=== PATIENT | male | born 1945 | race Caucasian/White ===

== ENCOUNTER 2019-01-14 21:59 | Inpatient (IN) ==
[2019-01-14] MEDS ORDERED: SODIUM CHLORIDE 0.9% 1000ML 1,000 ML IV SCH (22:15)
--- NOTE | 2019-01-14 22:25 | XRay Report ---
XR chest 1V portable CLINICAL HISTORY: 73 years-old Male presenting with ams. TECHNIQUE: Portable upright AP view of the chest was obtained. COMPARISON: None. FINDINGS: Atherosclerosis of the aortic arch. Cardiac silhouette enlarged. No focal opacity. No large effusion or pneumothorax. Degenerative changes of the thoracic spine. Upper abdomen normal. IMPRESSION: 1. Cardiomegaly. No other convincing evidence of acute cardiopulmonary disease. Electronically signed by: Jabier Ricketts M.D. 01/14/2019 10:23 PM
[2019-01-14 22:42] LABS: Appearance Urine Clear (Clear); Bacteria Urine Automated Negative (Negative); Bilirubin Urine Negative (Negative); Blood Urine 2+ (Negative); Color Urine Yellow; Glucose Urine UA 3+ (Negative); Ketones Urine Negative (Negative); Leukocyte Esterase Urine Negative (Negative); Nitrite Urine Negative (Negative); Specific Gravity Urine 1.023 (1.000-1.030); Urobilinogen Urine Negative (Negative); pH Urine 7.5 (4.5-7.5)
[2019-01-14 22:52] LABS: Protein Urine 3+ (Negative); Sulfosalicylic Acid Urine Positive (Negative)
[2019-01-14 22:52] LABS: iSTAT Creatinine 1.2 mg/dl (0.6-1.3); iSTAT Ionized Calcium 1.1 mmol/l (1.12-1.32)
[2019-01-14 23:07] LABS: Basophils # (auto) 0.02 K/uL (0-0.2); Basophils % (auto) 0.3 %; Eosinophils # (auto) 0.01 K/uL (0-0.5); Eosinophils % (auto) 0.1 %; Hematocrit (blood only) 47.2 % (42-52); Hemoglobin 16.4 g/dL (14.0-18.0); Immature Granulocytes # (auto) 0.02 K/uL (0.00-0.02); Immature Granulocytes % (auto) 0.3 %; Lymphocytes # (auto) 0.85 K/uL (1.2-3.4); Lymphocytes % (auto) 10.8 %; Mean Corpuscular Hemoglobin 28.4 pg (25-34); Mean Corpuscular Hgb Conc 34.7 g/dL (32-36); Mean Corpuscular Volume 81.7 fL (80-100); Mean Platelet Volume 11.2 fL (7.4-10.4); Monocytes # (auto) 0.36 K/uL (0.11-0.59); Monocytes % (auto) 4.6 %; Neutrophils # (auto) 6.62 K/uL (1.4-6.5); Neutrophils % (auto) 83.9 %; Platelet Count 227 K/uL (130-400); RDW Coefficient of Variation 13.8 % (11.5-14.5); RDW Standard Deviation 40.9 fL (36.4-46.3); Red Blood Count 5.78 M/uL (4.7-6.1); White Blood Count 7.88 K/uL (4.8-10.8)
[2019-01-14 23:10] LABS: Base Excess VBG 3.3 mEq/L; Oxygen Saturation VBG 76.9 %; pH VBG 7.41 (7.36-7.41)
[2019-01-14 23:45] LABS: Albumin Level 3.1 gm/dl (3.4-5.0); BUN Creatinine Ratio 16.4 (10-20); Bilirubin,Total 0.6 mg/dl (0.2-1); Calcium 9.3 mg/dl (8.5-10.1); Creatinine Clr Calc Pharmacy 50.4 ml/min; Total Protein 7.9 gm/dl (6.4-8.2); Troponin I 0.062 ng/ml (0-0.045)
[2019-01-14] MEDS ORDERED: NITROGLYCERIN/D5W 100MCG/ML 250 ML IV SCH (23:45)
[2019-01-14 23:51] LABS: Potassium 4.5 mmol/L (3.5-5.1)
[2019-01-14 23:57] LABS: Aspartate Aminotransferase 15 U/L (15-37); Beta-Hydroxybutyrate 5.18 mg/dl (0.2-2.81); Bilirubin Direct < 0.1 mg/dl (0-0.2); Magnesium 2.1 mg/dl (1.8-2.4)
[2019-01-14] MEDS ORDERED: FUROSEMIDE 40 MG/4 ML VIAL IV STA (23:57)
[2019-01-15 00:42] LABS: INR 0.9 (0.9-1.1); Partial Thromboplastin Ratio 0.8; Partial Thromboplastin Time 22.2 Seconds (21.0-31.0); Prothrombin Time 9.7 Seconds (9.0-12.0)
[2019-01-15] MEDS ORDERED: NovoLIN-R INSULIN PER UNIT CHARGE IV STA (00:55)
--- NOTE | 2019-01-15 00:55 | Emergency Department Note ---
Entered by Shmuel Fierro acting as a scribe for Vincent Galarza History of Present Illness General Chief complaint: Hyperglycemia Stated complaint: HYPERGLYCEMIA, CONFUSION, AMS Time Seen by Provider: 01/14/19 22:08 Source: RN notes reviewed Mode of arrival: ambulatory Limitations: altered mental status History of Present Illness The patient is a 73 y/o male who presents to the ED w/ CC of hyperglycemia. Nursing staff states the patient was [facility] un[facility]. They report police were called and the patient was brought the ED. Nursing notes the patient was syncopal and incontinent of his urine. They state he has a history of diabetes and in noncompliant. Nursing reports the patient's BSG was 572 upon arrival. The patient notes he does not remember anything and does not currently have pain. HPI limited secondary to the patient's altered mental status. Home Medications Home Medications Medication Instructions Recorded Confirmed Type No Known Home Medications 01/15/19 01/15/19 History Allergies Allergy/AdvReac Type Severity Reaction Status Date / Time No Known Allergies Allergy Unverified 01/15/19 00:41 Past Med/Surg History Medical History Medical history unknown Surgical History Surgical history unknown Family History Other Family history unobtainable Social History Preferred Language: Trinidadian Feels Safe at Home: Yes Smoking Status: Unknown if ever smoked Review of Systems Unobtainable due to cognitive status (AMS) Physical Exam Vital Signs Vital Signs - 24 hr 01/14/19 22:10 01/14/19 22:55 01/14/19 23:18 Temperature 37.3 C Temperature Source Oral Sepsis Recent Fever Within 48 Hours No Sepsis New/Unexplained Change in Mental Status Yes Sepsis Action Taken by Nursing No Action Required Pulse Rate 93 H 93 H 92 H Pulse Rate from SpO2 Sensor 93 H 92 H Pulse Rhythm Regular Pulse Strength Normal Respiratory Rate 24 17 17 Respiratory Effort / Characteristics Non-Labored Spontaneous Respiratory Depth Normal Respiratory Pattern Regular Blood Pressure 248/131 H 216/119 H 226/113 H Blood Pressure Mean 170 151 150 Blood Pressure Position Lying Pulse Oximetry 91 95 96 Oxygen Delivery Method Room Air Oxygen Flow Rate 01/14/19 23:30 01/14/19 23:43 01/14/19 23:45 Temperature Temperature Source Sepsis Recent Fever Within 48 Hours Sepsis New/Unexplained Change in Mental Status Sepsis Action Taken by Nursing Pulse Rate 91 H 89 88 Pulse Rate from SpO2 Sensor 90 89 88 Pulse Rhythm Pulse Strength Respiratory Rate 17 18 16 Respiratory Effort / Characteristics Respiratory Depth Respiratory Pattern Blood Pressure 215/116 H 219/107 H Blood Pressure Mean 149 144 Blood Pressure Position Pulse Oximetry 97 97 97 Oxygen Delivery Method Oxygen Flow Rate 2 2 2 01/14/19 23:57 01/15/19 00:00 01/15/19 00:15 Temperature Temperature Source Sepsis Recent Fever Within 48 Hours Sepsis New/Unexplained Change in Mental Status Sepsis Action Taken by Nursing Pulse Rate 90 91 H Pulse Rate from SpO2 Sensor 90 90 Pulse Rhythm Pulse Strength Respiratory Rate 17 16 Respiratory Effort / Characteristics Respiratory Depth Respiratory Pattern Blood Pressure 239/120 H Blood Pressure Mean 159 Blood Pressure Position Pulse Oximetry 89 L 97 94 Oxygen Delivery Method Room Air Oxygen Flow Rate 2 2 01/15/19 00:30 01/15/19 00:37 Temperature Temperature Source Sepsis Recent Fever Within 48 Hours Sepsis New/Unexplained Change in Mental Status Sepsis Action Taken by Nursing Pulse Rate 90 88 Pulse Rate from SpO2 Sensor 90 88 Pulse Rhythm Pulse Strength Respiratory Rate 18 21 Respiratory Effort / Characteristics Respiratory Depth Respiratory Pattern Blood Pressure 215/107 H Blood Pressure Mean 143 Blood Pressure Position Pulse Oximetry 94 94 Oxygen Delivery Method Nasal Cannula Oxygen Flow Rate 2 GENERAL: He is oriented x1. He appears dirty and smells of urine. He does appear distressed. HENT: Exam performed. - Head: Normocephalic and atraumatic. - Right Ear: External ear normal. No mastoid tenderness. - Left Ear: External ear normal. No mastoid tenderness. - Mouth/Throat: Dry mucous membranes. EYES: Conjunctivae and EOM are normal. Pupils are equal, round, and reactive to light. Right eye exhibits no discharge. Left eye exhibits no discharge. No sc leral icterus. NECK: Supple. CV: Tachycardic rate, regular rhythm, normal heart sounds and intact distal pulses. There is 3+ pitting edema of the bilateral LE. Palpable radial pulses bue. PULM/CHEST: Effort normal. No respiratory distress. No stridor. He has no wheezes. He has no rales. Rhonchi bilaterally. - Chest Wall: He exhibits no tenderness. ABD: Soft. MUSC/SKEL: Normal range of motion. There is 3+ pitting edema of the bilateral LE. No tenderness or deformity. LYMPH: No cervical adenopathy. NEURO motor and sensation grossly intact. Alert and oriented x1. SKIN: Dirty soaked in urine. Course 220: Past medical records reviewed. The patient was evaluated in room B06. A complete history and physical exam was performed. 2358: The patient is hypertensive and hypoxic. The chest x-ray shows fluid overload with cardiomegaly. IV fluids were stopped at this time. The patient only received approximately 300 cc of fluid. His labs show a glucose of 589, troponin of 0.062, and a ProBNP of 2010. The patient does not have an osmolar or anion gap.The patient was placed on supplemental oxygen and a nitro drip. The patient will also be given Lasix for CHF. He will be admitted to the [facility] for further management and care. 0001: I discussed the patient's case with Dr. Jeffery, [facility]. He will evaluate the patient for further care and states to admit the patient to the ICU given that he is on nitroglycerin drip. 0102: Patient remains hypertensive, will increase nitro drip at this time. Administered Medications Sodium Chloride (Nss 1000ml) 1,000 mls @ 100 mls/hr IV .Q10H [facility] Stop: 02/13/19 22:14 Last Admin: 01/14/19 22:56 Dose: 100 mls/hr Documented by: [id number] Nitroglycerin/Dextrose (Nitroglycerin/D5w 100 Mcg/Ml) 250 mls @ 6 mls/hr IV .Q24H [facility]; Protocol Stop: 02/13/19 23:44 Last Admin: 01/15/19 00:29 Dose: 10 mcg/min, 6 mls/hr Documented by: [id number] Cosigned by: [id number] Discontinued Medications Furosemide (Lasix) 40 mg IV NOW STA Stop: 01/14/19 23:58 Last Admin: 01/15/19 00:32 Dose: Not Given Documented by: [id number] Medical Decision Making Medical Records Attestation: I reviewed the patient's medical records. Home Medications Current Medication List: was personally reviewed by ma Laboratory Data Attestation: I reviewed the patient's lab results. Result diagrams: 01/14/19 22:28 01/14/19 22:55 Lab Results 01/14/19 01/14/19 01/14/19 Range/Units 22:28 22:28 22:28 WBC 7.88 (4.8-10.8) K/uL RBC 5.78 (4.7-6.1) M/uL Hgb 16.4 (14.0-18.0) g/dL POC Hgb (14.0-18.0) g/dl Hct 47.2 (42-52) % POC Hct (42-52) % MCV 81.7 (80-100) fL MCH 28.4 (25-34) pg MCHC 34.7 (32-36) g/dL RDW Std Deviation 40.9 (36.4-46.3) fL RDW Coeff of Flash 13.8 (11.5-14.5) % Plt Count 227 (130-400) K/uL MPV 11.2 H (7.4-10.4) fL Immature Gran % (Auto) 0.3 % Neut % (Auto) 83.9 % Lymph % (Auto) 10.8 % [place] % (Auto) 4.6 % Eos % (Auto) 0.1 % Baso % (Auto) 0.3 % Immature Gran # (Auto) 0.02 (0.00-0.02) K/uL Neut # (Auto) 6.62 H (1.4-6.5) K/uL Lymph # (Auto) 0.85 L (1.2-3.4) K/uL [place] # (Auto) 0.36 (0.11-0.59) K/uL Eos # (Auto) 0.01 (0-0.5) K/uL Baso # (Auto) 0.02 (0-0.2) K/uL PT Cancelled INR Cancelled APTT Cancelled PTT Ratio Cancelled VBG pH (7.36-7.41) VBG pCO2 (38-50) mmHg VBG pO2 mmHg VBG HCO3 mmol/L VBG O2 Saturation % VBG Base Excess mEq/L Barometric Pressure mm/Hg POC Sodium (135-144) mEq/L Sodium 135 L (136-145) mmol/L POC Potassium (3.3-5.0) mEq/L Potassium (3.5-5.1) mmol/L POC Chloride (101-112) mEq/L Chloride 98 (98-107) mmol/L Carbon Dioxide 27 (21-32) mmol/L POC Total CO2 (24-31) mEq/l Anion Gap 10.0 (3-11) POC Anion Gap (16-25) mmol/L POC BUN (7-18) mg/dl BUN 26 H (7-18) mg/dl Creatinine 1.56 H (0.6-1.4) mg/dl POC Creatinine (0.6-1.3) mg/dl Est Cr Clr Drug Dosing 50.4 ml/min Est GFR ( Amer) 51.0 Est GFR (Non-Af Amer) 44.0 BUN/Creatinine Ratio 16.4 (10-20) Glucose 589 H* (70-99) mg/dl POC Glucose (other) (70-99) mg/dl Osmolality (280-300) mOsm/kg Lactate (0.4-2.0) mmol/L Calcium 9.3 (8.5-10.1) mg/dl POC Ioniz Calcium [place] (1.12-1.32) mmol/l Magnesium (1.8-2.4) mg/dl Total Bilirubin 0.6 (0.2-1) mg/dl Direct Bilirubin (0-0.2) mg/dl AST (15-37) U/L ALT 20 (12-78) U/L Alkaline Phosphatase 118 H (45-117) U/L Troponin I 0.062 H* (0-0.045) ng/ml NT-Pro-B Natriuret Pep 2010 H (0-900) pg/ml Total Protein 7.9 (6.4-8.2) gm/dl Albumin 3.1 L (3.4-5.0) gm/dl Lipase 281 (73-393) U/L Beta-Hydroxybutyric Acd (0.2-2.81) mg/dl Urine Color Urine Appearance (Clear) Urine pH (4.5-7.5) Ur Specific [place] (1.000-1.030) Urine Protein (Negative) Urine Glucose (UA) (Negative) Urine Ketones (Negative) Urine Blood (Negative) Urine Nitrite (Negative) Urine Bilirubin (Negative) Urine Urobilinogen (Negative) Ur Leukocyte Esterase (Negative) Urine WBC (Auto) (0-5) /hpf Urine RBC (Auto) (0-4) /hpf U Hyaline Cast (Auto) (0-5) /lpf U Epithel Cells (Auto) (0-5) /lpf Urine Bacteria (Auto) (Negative) Ethyl Alcohol mg/dL (0-3) mg/dl 01/14/19 01/14/19 01/14/19 Range/Units 22:31 22:34 22:37 WBC (4.8-10.8) K/uL RBC (4.7-6.1) M/uL Hgb (14.0-18.0) g/dL POC Hgb 17.0 (14.0-18.0) g/dl Hct (42-52) % POC Hct 50 (42-52) % MCV (80-100) fL MCH (25-34) pg MCHC (32-36) g/dL RDW Std Deviation (36.4-46.3) fL RDW Coeff of Flash (11.5-14.5) % Plt Count (130-400) K/uL MPV (7.4-10.4) fL Immature Gran % (Auto) % Neut % (Auto) % Lymph % (Auto) % [place] % (Auto) % Eos % (Auto) % Baso % (Auto) % Immature Gran # (Auto) (0.00-0.02) K/uL Neut # (Auto) (1.4-6.5) K/uL Lymph # (Auto) (1.2-3.4) K/uL [place] # (Auto) (0.11-0.59) K/uL Eos # (Auto) (0-0.5) K/uL Baso # (Auto) (0-0.2) K/uL PT INR APTT PTT Ratio VBG pH (7.36-7.41) VBG pCO2 (38-50) mmHg VBG pO2 mmHg VBG HCO3 mmol/L VBG O2 Saturation % VBG Base Excess mEq/L Barometric Pressure mm/Hg POC Sodium 132 L (135-144) mEq/L Sodium (136-145) mmol/L POC Potassium 6.0 H (3.3-5.0) mEq/L Potassium (3.5-5.1) mmol/L POC Chloride 98 L (101-112) mEq/L Chloride (98-107) mmol/L Carbon Dioxide (21-32) mmol/L POC Total CO2 28 (24-31) mEq/l Anion Gap (3-11) POC Anion Gap 13.0 L (16-25) mmol/L POC BUN 41 H (7-18) mg/dl BUN (7-18) mg/dl Creatinine (0.6-1.4) mg/dl POC Creatinine 1.2 (0.6-1.3) mg/dl Est Cr Clr Drug Dosing ml/min Est GFR ( Amer) Est GFR (Non-Af Amer) BUN/Creatinine Ratio (10-20) Glucose (70-99) mg/dl POC Glucose (other) 617 H* (70-99) mg/dl Osmolality 321 H (280-300) mOsm/kg Lactate (0.4-2.0) mmol/L Calcium (8.5-10.1) mg/dl POC Ioniz Calcium [place] 1.10 L (1.12-1.32) mmol/l Magnesium (1.8-2.4) mg/dl Total Bilirubin (0.2-1) mg/dl Direct Bilirubin (0-0.2) mg/dl AST (15-37) U/L ALT (12-78) U/L Alkaline Phosphatase (45-117) U/L Troponin I (0-0.045) ng/ml NT-Pro-B Natriuret Pep (0-900) pg/ml Total Protein (6.4-8.2) gm/dl Albumin (3.4-5.0) gm/dl Lipase (73-393) U/L Beta-Hydroxybutyric Acd (0.2-2.81) mg/dl Urine Color Yellow Urine Appearance Clear (Clear) Urine pH 7.5 (4.5-7.5) Ur Specific [place] 1.023 (1.000-1.030) Urine Protein 3+ H (Negative) Urine Glucose (UA) 3+ H (Negative) Urine Ketones Negative (Negative) Urine Blood 2+ H (Negative) Urine Nitrite Negative (Negative) Urine Bilirubin Negative (Negative) Urine Urobilinogen Negative (Negative) Ur Leukocyte Esterase Negative (Negative) Urine WBC (Auto) 1-5 (0-5) /hpf Urine RBC (Auto) 5-10 H (0-4) /hpf U Hyaline Cast (Auto) 1-5 (0-5) /lpf U Epithel Cells (Auto) 10-20 H (0-5) /lpf Urine Bacteria (Auto) Negative (Negative) Ethyl Alcohol mg/dL (0-3) mg/dl 01/14/19 01/14/19 01/14/19 Range/Units 22:55 22:55 22:55 WBC (4.8-10.8) K/uL RBC (4.7-6.1) M/uL Hgb (14.0-18.0) g/dL POC Hgb (14.0-18.0) g/dl Hct (42-52) % POC Hct (42-52) % MCV (80-100) fL MCH (25-34) pg MCHC (32-36) g/dL RDW Std Deviation (36.4-46.3) fL RDW Coeff of Flash (11.5-14.5) % Plt Count (130-400) K/uL MPV (7.4-10.4) fL Immature Gran % (Auto) % Neut % (Auto) % Lymph % (Auto) % [place] % (Auto) % Eos % (Auto) % Baso % (Auto) % Immature Gran # (Auto) (0.00-0.02) K/uL Neut # (Auto) (1.4-6.5) K/uL Lymph # (Auto) (1.2-3.4) K/uL [place] # (Auto) (0.11-0.59) K/uL Eos # (Auto) (0-0.5) K/uL Baso # (Auto) (0-0.2) K/uL PT INR APTT PTT Ratio VBG pH 7.41 (7.36-7.41) VBG pCO2 46 (38-50) mmHg VBG pO2 41 mmHg VBG HCO3 29 mmol/L VBG O2 Saturation 76.9 % VBG Base Excess 3.3 mEq/L Barometric Pressure 733.0 mm/Hg POC Sodium (135-144) mEq/L Sodium (136-145) mmol/L POC Potassium (3.3-5.0) mEq/L Potassium (3.5-5.1) mmol/L POC Chloride (101-112) mEq/L Chloride (98-107) mmol/L Carbon Dioxide (21-32) mmol/L POC Total CO2 (24-31) mEq/l Anion Gap (3-11) POC Anion Gap (16-25) mmol/L POC BUN (7-18) mg/dl BUN (7-18) mg/dl Creatinine (0.6-1.4) mg/dl POC Creatinine (0.6-1.3) mg/dl Est Cr Clr Drug Dosing ml/min Est GFR ( Amer) Est GFR (Non-Af Amer) BUN/Creatinine Ratio (10-20) Glucose (70-99) mg/dl POC Glucose (other) (70-99) mg/dl Osmolality (280-300) mOsm/kg Lactate 1.9 (0.4-2.0) mmol/L Calcium (8.5-10.1) mg/dl POC Ioniz Calcium [place] (1.12-1.32) mmol/l Magnesium (1.8-2.4) mg/dl Total Bilirubin (0.2-1) mg/dl Direct Bilirubin (0-0.2) mg/dl AST (15-37) U/L ALT (12-78) U/L Alkaline Phosphatase (45-117) U/L Troponin I (0-0.045) ng/ml NT-Pro-B Natriuret Pep (0-900) pg/ml Total Protein (6.4-8.2) gm/dl Albumin (3.4-5.0) gm/dl Lipase (73-393) U/L Beta-Hydroxybutyric Acd (0.2-2.81) mg/dl Urine Color Urine Appearance (Clear) Urine pH (4.5-7.5) Ur Specific [place] (1.000-1.030) Urine Protein (Negative) Urine Glucose (UA) (Negative) Urine Ketones (Negative) Urine Blood (Negative) Urine Nitrite (Negative) Urine Bilirubin (Negative) Urine Urobilinogen (Negative) Ur Leukocyte Esterase (Negative) Urine WBC (Auto) (0-5) /hpf Urine RBC (Auto) (0-4) /hpf U Hyaline Cast (Auto) (0-5) /lpf U Epithel Cells (Auto) (0-5) /lpf Urine Bacteria (Auto) (Negative) Ethyl Alcohol mg/dL < 3.0 (0-3) mg/dl 01/14/19 01/15/19 Range/Units 22:55 00:21 WBC (4.8-10.8) K/uL RBC (4.7-6.1) M/uL Hgb (14.0-18.0) g/dL POC Hgb (14.0-18.0) g/dl Hct (42-52) % POC Hct (42-52) % MCV (80-100) fL MCH (25-34) pg MCHC (32-36) g/dL RDW Std Deviation (36.4-46.3) fL RDW Coeff of Flash (11.5-14.5) % Plt Count (130-400) K/uL MPV (7.4-10.4) fL Immature Gran % (Auto) % Neut % (Auto) % Lymph % (Auto) % [place] % (Auto) % Eos % (Auto) % Baso % (Auto) % Immature Gran # (Auto) (0.00-0.02) K/uL Neut # (Auto) (1.4-6.5) K/uL Lymph # (Auto) (1.2-3.4) K/uL [place] # (Auto) (0.11-0.59) K/uL Eos # (Auto) (0-0.5) K/uL Baso # (Auto) (0-0.2) K/uL PT 9.7 INR 0.9 APTT 22.2 PTT Ratio 0.8 VBG pH (7.36-7.41) VBG pCO2 (38-50) mmHg VBG pO2 mmHg VBG HCO3 mmol/L VBG O2 Saturation % VBG Base Excess mEq/L Barometric Pressure mm/Hg POC Sodium (135-144) mEq/L Sodium (136-145) mmol/L POC Potassium (3.3-5.0) mEq/L Potassium 4.5 (3.5-5.1) mmol/L POC Chloride (101-112) mEq/L Chloride (98-107) mmol/L Carbon Dioxide (21-32) mmol/L POC Total CO2 (24-31) mEq/l Anion Gap (3-11) POC Anion Gap (16-25) mmol/L POC BUN (7-18) mg/dl BUN (7-18) mg/dl Creatinine (0.6-1.4) mg/dl POC Creatinine (0.6-1.3) mg/dl Est Cr Clr Drug Dosing ml/min Est GFR ( Amer) Est GFR (Non-Af Amer) BUN/Creatinine Ratio (10-20) Glucose (70-99) mg/dl POC Glucose (other) (70-99) mg/dl Osmolality (280-300) mOsm/kg Lactate (0.4-2.0) mmol/L Calcium (8.5-10.1) mg/dl POC Ioniz Calcium [place] (1.12-1.32) mmol/l Magnesium 2.1 (1.8-2.4) mg/dl Total Bilirubin (0.2-1) mg/dl Direct Bilirubin < 0.1 (0-0.2) mg/dl AST 15 (15-37) U/L ALT (12-78) U/L Alkaline Phosphatase (45-117) U/L Troponin I (0-0.045) ng/ml NT-Pro-B Natriuret Pep (0-900) pg/ml Total Protein (6.4-8.2) gm/dl Albumin (3.4-5.0) gm/dl Lipase (73-393) U/L Beta-Hydroxybutyric Acd 5.18 H (0.2-2.81) mg/dl Urine Color Urine Appearance (Clear) Urine pH (4.5-7.5) Ur Specific [place] (1.000-1.030) Urine Protein (Negative) Urine Glucose (UA) (Negative) Urine Ketones (Negative) Urine Blood (Negative) Urine Nitrite (Negative) Urine Bilirubin (Negative) Urine Urobilinogen (Negative) Ur Leukocyte Esterase (Negative) Urine WBC (Auto) (0-5) /hpf Urine RBC (Auto) (0-4) /hpf U Hyaline Cast (Auto) (0-5) /lpf U Epithel Cells (Auto) (0-5) /lpf Urine Bacteria (Auto) (Negative) Ethyl Alcohol mg/dL (0-3) mg/dl Imaging Data Radiologist's Impression: Radiology results as stated below per my review and the radiologist's interpretation: XR chest 1V portable CLINICAL HISTORY: 73 years-old Male presenting with ams. TECHNIQUE: Portable upright AP view of the chest was obtained. COMPARISON: None. FINDINGS: Atherosclerosis of the aortic arch. Cardiac silhouette enlarged. No focal opacity. No large effusion or pneumothorax. Degenerative changes of the thoracic spine. Upper abdomen normal. IMPRESSION: 1. Cardiomegaly. No other convincing evidence of acute cardiopulmonary disease. Electronically signed by: Jabier Ricketts M.D. 01/14/2019 10:23 PM Radiology results as stated below per my review and the [facility] radiologist's i nterpretation: CT HEAD: No ICH, mass effect or edema. No evidence of acute cortical stroke. Periventricular small vessel ischemic change. Visualized sinuses and mastoid air cells are clear. Radiologist: Mckay Prajapati M.D. Study ready at 23:20 and initial results transmitted at 23:49 ECG Data Attestation: I personally reviewed and interpreted this ECG as follows: Indication: altered mental status Rate (beats per minute): 108 Rhythm: sinus with SA Findings: + other (OR 230, QRS 108, QTc 514. Baseline artifact due to movement.) Blood Pressure Blood Pressure Findings: Elevated blood pressure Blood Pressure Disposition: Referred to patients primary care provider MDM Narrative 2208: Past medical records reviewed. The patient was evaluated in room B06. A complete history and physical exam was performed. 2358: The patient is hypertensive and hypoxic. The chest x-ray shows fluid overload with cardiomegaly. IV fluids were stopped at this time. The patient only received approximately 300 cc of fluid. His labs show a glucose of 589, troponin of 0.062, and a ProBNP of 2010. The patient does not have an osmolar or anion gap.The patient was placed on supplemental oxygen and a nitro drip. The patient will also be given Lasix for CHF. He will be admitted to the [facility] for further management and care. 0001: I discussed the patient's case with Dr. Jeffery, [facility]. He will evaluate the patient for further care and states to admit the patient to the ICU given that he is on nitroglycerin drip. 0102: Patient remains hypertensive, will increase nitro drip at this time. Impression & Plan Hypoxia, CHF exacerbation Critical Care Time Critical Care Time: Yes Total Critical Care Time: 70 I have personally spent 70 minutes of critical care time in the direct management of this patient. This includes bedside care, interpretation of diagnostic studies, and testing, discussion with consultants, patient, and family members, and other required patient management activities. This 70 minutes is in excess of all separately billable procedures. Discharge Plan Visit Data Chief Complaint: Hyperglycemia Stated Complaint: HYPERGLYCEMIA, CONFUSION, AMS ED Provider: Vincent Galarza Discharge Problem: Hypoxia, CHF exacerbation Patient Disposition: Being Evaluated by Hospitalist Forms Stand Alone Forms: My [facility] Prescriptions Prescriptions: No Action No Known Home Medications RF: 0 Referrals Referrals: PCP,NO [Primary Care Provider] - Discharge Problem: CHF exacerbation Qualifiers: Heart failure type: unspecified Qualified Code(s): I50.9 - Heart failure, unspecified The scribe's documentation has been prepared under my direction and personally reviewed by me in its entirety. I confirm that the note above accurately reflects all work, treatment, procedures, and medical decision making performed by me.
[2019-01-15] MEDS ORDERED: INSULIN GLARGINE SOLOSTAR 100 UNITS/ML 3 ML PEN SC SCH ×2 (01:00→09:00)
--- NOTE | 2019-01-15 02:03 | Critical Care Consultation ---
Date of Consultation January 15, 2019 Assessment & Plan (1) Admitted to intensive care unit: Reason Critically Ill: 73-year-old male with hypertensive emergency requiring antihypertensive drip with altered mentation as well as endorgan damage in the setting of elevated troponin and presumed MODESTO. Hyperglycemia. NEURO - * CAM ICU: NEGATIVE * AMS: * In the setting of negative CT without contrast and improving mentation with improvement in blood pressure, likely related to hypertensive enceph alopathy. * Will add urine tox screen. * No focal neurological deficits this time. CARDIAC/VASCULAR - * Hypertensive urgency: * Started on nitroglycerin drip in the emergency department with adequate results. * Plan to wean down as tolerated. * Switch to p.o. medications as soon as possible. * EKG: SR w/ poor quality EKG. No ST/T-wave changes noted. QTc 514ms. * Monitor on telemetry. RESPIRATORY - * Hypoxia: * No known h/o pulmonary disease. * Possibly s/s AMS w/ hypoventilation in the picture of GALINDO patient. * Supplemental O2 PRN. GI/NUTRITION - * NPO at this time. * Progress to AHA diet when tolerating. * Prophylaxis: No need at this time. RENAL/LYTES - * Presumed MODESTO: * Likely 2/2 HTN emergency. * Repeat labs w/ improvement of BP. * IVF: hold 2/2 profound HTN. - * Lee in place - Strict I&Os. ENDO - * Hyperglycemia: * Noncompliant w/ meds. * BSGs per unit protocol. ISS --> gtt per unit policy. HEME - * Stable H&H ID - * No c/o infectious contribution at this time. * Trend fever curve. LINES/IV ACCESS - * PIVs x2 * Lee DVT PROPHYLAXIS - * Heparin * SCDs I have personally spent 35 minutes of critical care time in the direct management of this patient. This is a life/limb threatening event. This includes time spent evaluating patient, direct bedside care, chart review, placing orders, interpretation of diagnostic studies, discussion with consultants, patient, and family members, as well as other required patient management activities. This time is exclusive of all separately billable procedures, and teaching time and separate from and in addition to any other critical care service time. Thank you for allowing us to participate in the care of this patient. Please refer to my attending physician's documentation for any further recommendations. (2) Hypertensive emergency: (3) Heart failure with preserved ejection fraction: (4) Hypertensive encephalopathy: (5) Hyperglycemia: Supervising Physician Co-Signing Physician Notes Patient seen and examined. EMR reviewed. Imaging studies and dependently reviewed. Discussed extensively with KEV. Agree with his assessment and plan as outlined below. 73-year-old male with poor social status/homelessness admitted with hyperosmolar nonketotic state and encephalopathy with hypertensive urgency. Patient has prescribed medications but is been unable to take them for the last several weeks due to his social situation. The patient initially was placed on a nitro infusion for blood pressure control and presumed heart failure. This was d iscontinued on arrival to the ICU. Blood pressures been under adequate control. He has not required parenteral agents. Is not on supplemental oxygen. Hyperglycemia is improving with the insulin infusion. He does have lower extremity edema and requires additional evaluation for right-sided heart failure. High pretest probability for sleep disordered breathing however his social situation likely precludes assessment for sleep apnea at this point time. Diuresis will need to be initiated at some point for cor pulmonale. As were starting multiple new medications, will hold off on additional diuresis pending assessment of his renal function. Will restart oral home antihypertensives and hypoglycemics. Wean insulin drip to off. The patient is eligible to transfer to the floor under the care of the hospitalist. Will sign off once he leaves the intensive care unit. History of Present Illness History of Present Illness Patient is a 73-year-old male with no past medical history from records of hypertension and heart failure with preserved ejection fraction who presented to the emergency department via EMS with altered mental status and significant hypertension. Endorgan damage suggestive of hypertensive urgency requiring initiation of antihypertensive therapy in the form of nitroglycerin drip. Patient was not able to provide history. CT the head and chest x-ray were unremarkable. On evaluation the ICU, the patient is awake and alert. He is able to provide that he currently lives out of his car. He is unable to retrieve items from his home as his mother was recently admitted to a personal usp and he is denied access to his home. He states that he has not received his home medications in some time. By records, the patient is apparently noncompliant. He currently complains of headache. Otherwise, he denies any dizziness, blurry vision, chest pain, palpitations, nausea, vomiting, abdominal pain. He reports no history of substance abuse. Allergies Allergy/AdvReac Type Severity Reaction Status Date / Time No Known Allergies Allergy Unverified 01/15/19 00:41 Home Medications Home Medications Medication Instructions Recorded Confirmed Type No Known Home Medications 01/15/19 01/15/19 History Patient History Medical History Medical history unknown Surgical History Surgical history unknown Family History Other Family history unobtainable Social History Preferred Language: Mongolian Communication Ability: Effective School Health Assistant Required: No Beliefs That Will Affect Care: None Current Living Situation: Homeless Other Information That Helps Us Care for You: No Feels Safe at Home: Yes Safety Concerns: Feels Safe At This Time Smoking Status: Smoker, status unknown Hx Alcohol Use: Yes Alcohol type: beer Hx Substance Use: No Review of Systems Review of Systems: A complete 10 point review of systems was reviewed with the patient with pertinent positives and negatives as per history of present illness. All else were negative. Physical Exam Physical Exam: VITAL SIGNS - Vital signs and nursing notes were reviewed. GENERAL - 73-year-old male appearing his stated age who is in no acute distress. Communicates well with provider and answers questions appropriately. HEAD - NC/AT. EYES - PERRL with EOMI bilaterally. Sclera anicteric. Palpebral conjunctiva pink and moist with no injection noted. EARS - No deformities of external structures noted on gross examination bilaterally. No pain elicited with palpation of the tragus bilaterally. External auditory canals without discharge or otorrhea. Tympanic membranes pearly hernandez without retraction or bulging. No fluid or purulent material visualized behind the TM. Handle of malleus, umbo, cone of light, pars tensa/flaccid all easily visualized. NOSE - Midline and without cyanosis. No epistaxis or purulent drainage noted. Septum midline without deviation or septal hematoma noted. MOUTH/OROPHARYNX - Without perioral cyanosis. Buccal mucosa pink and moist and without leukoplakia. Tongue midline with equal elevation of palate bilaterally. No tonsillar hypertrophy, erythema, or exudates noted. Poor dentition noted. NECK - Neck with FROM. Supple to palpation. LUNGS - Chest wall symmetric without accessory muscle use, intercostals retractions, or central cyanosis. Normal vesicular breath sounds CTA B/L. No wheezes, rales, or rhonchi appreciated. CARDIAC - RRR with S1/S2. No murmur, rubs, or gallops appreciated. No reproducible tenderness to palpation appreciated over the anterior chest wall. ABDOMEN - Abdominal contour obese without pulsations or visible masses. BS normoactive all four quadrants. No tenderness, palpable masses, hepatosplenomegaly, or ascites noted. EXTREMITIES - No clubbing or peripheral cyanosis. Moderate bilateral pretibial edema present. +3/5 radial and dorsalis pedis pulses palpated throughout. +5/5 strength noted in UE/LE bilaterally. NEUROLOGIC - Cranial nerves II through XII grossly intact. Sensory intact to light touch throughout. PSYCH -patient is awake and alert. He is able to provide person and place. He is slow on date, but does eventually report that it is January 2019. He states that he feels as though it is the . He is slow to provide historical information and somewhat confused. Results & Data Vital Signs (Past 12 Hours) Vital Signs Temp Pulse Resp BP Pulse Ox 01/15/19 01:15 92 H 16 143/86 H 92 01/15/19 01:00 92 H 16 224/113 H 93 01/15/19 00:45 90 17 213/103 H 93 01/15/19 00:37 88 21 215/107 H 94 01/15/19 00:30 90 18 94 01/15/19 00:15 91 H 16 94 01/15/19 00:00 90 17 239/120 H 97 01/14/19 23:57 89 L 01/14/19 23:45 88 16 97 01/14/19 23:43 89 18 219/107 H 97 01/14/19 23:30 91 H 17 215/116 H 97 01/14/19 23:18 92 H 17 226/113 H 96 01/14/19 22:55 93 H 17 216/119 H 95 01/14/19 22:10 37.3 C 93 H 24 248/131 H 91 PG Care Time/CCT Total # of Minutes Spent Total Time Spent with Patient: Total time spent is greater than 50% in coordination of care (as documented) at patient's floor/unit and/or counseling patient: Critical Care Time: Yes Total Critical Care Time: 35
[2019-01-15] MEDS ORDERED: ICU PROTOCOL FOR HYPERGLYCEMIA PRN (02:11)
[2019-01-15] MEDS ORDERED: PHARMACY GLYCEMIC MGMT CONSULT PRN (02:23)
[2019-01-15] MEDS ORDERED: SEVERE STRESS LEVEL ONE (02:45)
[2019-01-15] MEDS ORDERED: INSULIN PROTOCOL GOAL RANGE ONE (02:45)
--- NOTE | 2019-01-15 02:52 | History and Physical Report ---
DATE OF ADMISSION: 01/15/2019 CHIEF COMPLAINT: Confusion. HISTORY OF PRESENT ILLNESS: This is a 73-year-old male with past medical history significant for type 2 diabetes, hyperlipidemia, obstructive sleep apnea, diastolic CHF, hypertension, history of atrial flutter, GI bleed, ventral hernia, obesity, who presents with confusion. The patient says he went to visit his friend who was in the hospital in the custodial and coming back he was confused. He was found in the car at [facility] with filth all around him and brought into the hospital and he was oriented only x1. Systolic blood pressure was running in 240s, sugars were running high in the 600s, but he was not in DKA. He was saturating 89% on room air and he has lower extremity edema. Chest x-ray is okay. Electrolytes were okay, labs were okay. Currently, the patient is alert and awake and oriented x3, but slow to answer. He is saying he also has some issues with memory. As per EPIC last PCP visit was in February 2018 . The patient says since last 3-4 months he is not taking any of his medications, because he ran out of the medication and he called them, but he was not given any medications. As per the PCP notes, since his mother is taken out to the jail, he is mostly homeless living with a friend, but when asked today, the patient states he is living alone. Patient says he has some headache. Denies any blurred visions. He also complains of sore throat. Denies any chest pain. No shortness of breath, no cough, no fever, no chills, no nausea, no abdominal pain. He says his bowels are moving okay and his bladder is functioning okay. ALLERGIES: No known drug allergies. PAST MEDICAL HISTORY: As mentioned above. PAST SURGICAL HISTORY: Colonoscopy, EGDs. MEDICATIONS: He is supposed to be on ferrous sulfate, albuterol p.r.n., Lasix 20 mg p.r.n., glimepiride, Norvasc, atorvastatin, lisinopril, metformin, aspirin, ascorbic acid, vitamin B12, Centrum Silver, vitamin D and it looks like he is not taking any medications since last 3-4 months. FAMILY HISTORY: Significant for mother had cancer, hypertension; father had stroke, diabetes; paternal grandmother had diabetes and stroke. SOCIAL HISTORY: Single. As per records, no smoking, alcohol rarely, no drug use. REVIEW OF SYSTEMS: As per HPI. Rest of review of systems could not get as patient somewhat confused and slow to answer. PHYSICAL EXAMINATION: GENERAL: The patient is alert and awake and oriented x3, was somewhat slow to answer. VITAL SIGNS: Temperature 37.3, pulse 88, respiratory rate 21, blood pressure 240/131, oxygen 94% on 2 liters. HEENT: No pallor, no icterus. Pupils equal and reactive to light. NECK: No JVD, no neck masses, no carotid bruits. CARDIOVASCULAR: S1, S2 heard, regular rate and rhythm, no murmur, no gallop. RESPIRATORY SYSTEM: Normal AP diameter. No accessory muscle use. No wheezing, no crackles. ABDOMEN: Soft, bowel sounds present, nontender. No distention. CENTRAL NERVOUS SYSTEM: Alert and oriented x3 but slow to answer. Obeys simple commands. Moves extremities. EXTREMITIES: Lower extremity gross edema present and some small rash seen in the left ankle medial aspect. LABORATORY DATA: WBC 7.8, hemoglobin 16.4, hematocrit 47.2, platelets 277. PT 9.7, INR 0.9, APTT 22.2. Venous blood gas pH 7.4, pCO2 of 46, pO2 of 41, bicarbonate 29. Sodium 135, potassium 4.5, chloride 98, CO2 of 27, BUN 26, creatinine 1.56, glucose 589, osmolality 21. Lactate 1.9, calcium 9.3, magnesium 2.1, total bilirubin 0.6, direct bilirubin less than 0.1, AST 15, ALT 20, alkaline phosphatase 118. Troponin I of 0.06. BNP 2000. Urinalysis positive for protein and glucose. Ethyl alcohol less than 3. IMAGING DATA: Chest x-ray, cardiomegaly. No acute cardiopulmonary findings seen. CT of the head, official report pending. EKG: Poor quality and undetermined rhythm at the rate of 108, left axis deviation, incomplete left bundle branch block. ASSESSMENT AND PLAN: This is a 73-year-old male who presents with encephalopathy most likely hypertensive encephalopathy. 1. Hypertensive urgency/emergency, hypertensive encephalopathy, was confused. Blood pressure was in 240/130s. Starting on nitro drip. Closely monitor in the ICU to lower the blood pressure by 20% to 25% today. The patient is not taking his taking medications since 3-4 months. 2. Diabetes, uncontrolled, which was in high 500. Not taking his home medications. Closely follow HbA1c level. We will give 5 units of regular insulin IV and place him on Lantus and sliding scale. Glycemic pharmacy consult. Needs diabetic education and will closely monitor him. 3. Diastolic congestive heart failure, has lower extremity edema, but chest x-ray okay, but requiring 2 L oxygen. BNP is elevated at 2000, probably [id number] diastolic congestive heart failure. The patient also somewhat looks dry because of high sugars. Monitor closely in the ICU. He is given 20 of Lasix as needed at home. Will follow the echocardiogram.Monitor volume status. 4. Mild elevation of troponin, mostly secondary to elevated blood pressure, demand ischemia. We will follow serial cardiac enzymes and echocardiogram. 5. History of obstructive sleep apnea, on CPAP at bedtime. 6. History of atrial flutter, not on Coumadin because of bleeding. 7. History of hyperlipidemia, not on medication. Follow the fasting lipid profile. Started on Lipitor 8. Rash. Erythematous rash on left ankle medial aspect. Will monitor.. 9. Deep vein thrombosis prophylaxis, sequential compression devices for now. 10.. Disposition: Closely monitor in the ICU. Level 1 full code. Social Service to help with discharge planning as patient may need help with outpatient followup. YUDI
[2019-01-15] MEDS ORDERED: INSULIN HUMAN REGULAR PER UNIT 4 UNITS in SYRINGE 3.96 ML IV ONE (03:00)
[2019-01-15] MEDS ORDERED: INSULIN REGULAR 250 UNITS in SODIUM CHLORIDE 0.9% 247.5 ML IV SCH (03:00)
[2019-01-15] MEDS ORDERED: FUROSEMIDE 40 MG/4 ML VIAL IV STA (04:34)
[2019-01-15] MEDS ORDERED: FUROSEMIDE 40 MG/4 ML VIAL IV ONE (04:35)
[2019-01-15 05:19] LABS: Basophils # (auto) 0.02 K/uL (0-0.2); Basophils % (auto) 0.2 %; Hematocrit (blood only) 44.3 % (42-52); Hemoglobin 15.5 g/dL (14.0-18.0); Immature Granulocytes # (auto) 0.02 K/uL (0.00-0.02); Immature Granulocytes % (auto) 0.2 %; Lymphocytes # (auto) 0.91 K/uL (1.2-3.4); Lymphocytes % (auto) 10.7 %; Mean Corpuscular Hemoglobin 28.3 pg (25-34); Mean Corpuscular Volume 80.8 fL (80-100); Mean Platelet Volume 9.7 fL (7.4-10.4); Monocytes # (auto) 0.74 K/uL (0.11-0.59); Monocytes % (auto) 8.7 %; Neutrophils # (auto) 6.85 K/uL (1.4-6.5); Neutrophils % (auto) 80.2 %; Platelet Count 236 K/uL (130-400); RDW Coefficient of Variation 13.5 % (11.5-14.5); RDW Standard Deviation 40.4 fL (36.4-46.3); Red Blood Count 5.48 M/uL (4.7-6.1); White Blood Count 8.54 K/uL (4.8-10.8)
[2019-01-15 06:06] LABS: BUN Creatinine Ratio 15.9 (10-20); Calcium 9.1 mg/dl (8.5-10.1); Creatinine Clr Calc Pharmacy 50.5 ml/min; Est GFR (African American) 51.8; Est GFR (Non-African American) 44.7; Magnesium 2.2 mg/dl (1.8-2.4); Potassium 3.9 mmol/L (3.5-5.1); Troponin I 0.121 ng/ml (0-0.045)
[2019-01-15 06:19] LABS: Amphetamines+Metham, Urine Neg (Neg); Barbiturates, Urine Neg (Neg); Benzodiazepine, Urine Neg (Neg); Cocaine, Urine Neg (Neg); MDMA (Ecstacy), Urine Neg (Neg); Methadone, Urine Neg (Neg); Opiate, Urine Neg (Neg); Phencyclidine, Urine Neg (Neg)
[2019-01-15 06:28] LABS: Beta-Hydroxybutyrate 1.68 mg/dl (0.2-2.81)
[2019-01-15 06:57] LABS: Estimated Average Glucose 295 mg/dl; Hemoglobin A1C 11.9 % (4.5-5.6)
--- NOTE | 2019-01-15 07:05 | CT Scan Report ---
CT SCAN OF THE BRAIN WITHOUT IV CONTRAST CLINICAL HISTORY: Change in mental status. COMPARISON STUDY: No priors. TECHNIQUE: Unenhanced axial CT scan of the brain is performed from the vertex to the skull base. A do se lowering technique was utilized adhering to the principles of ALARA. CT DOSE: 537.48 mGy.cm FINDINGS: Brain parenchyma: There are age-related involutional changes noting mild subcortical and periventric ular microangiopathic change. There is no hemorrhage, mass effect, or evidence of acute territorial i schemia by CT criteria. Luna-white matter differentiation is preserved. No extra-axial fluid collecti on is seen. Ventricles, sulci, cisterns: Prominent secondary to involutional change. Intracranial vasculature: There is mild atherosclerotic calcification of the cavernous carotid arteri es. Calvarium: Unremarkable. Sinuses and mastoids: There is minimal mucosal thickening within the right ethmoid sinuses. The remai david visualized paranasal sinuses are clear. The mastoid air cells are well pneumatized. Orbits: The bony orbits are grossly intact. IMPRESSION: There is no hemorrhage, mass effect, or evidence of acute territorial ischemia by CT tuan salazar. Electronically signed by: Bharat Koo M.D. 01/15/2019 7:03 AM
[2019-01-15] MEDS ORDERED: INSULIN ASPART 100 UNITS/ML 3 ML PEN SC SCH (07:30)
[2019-01-15] MEDS: INSULIN ASPART 100 UNITS/ML 3 ML PEN SC SCH ×5 (07:34→21:08)
[2019-01-15] MEDS ORDERED: PERFLUTREN LIPID MICROSPHERE (DEFINITY) IV ONE (08:38)
--- NOTE | 2019-01-15 08:47 | Hospitalist Progress Note ---
Date of Service January 15, 2019 Assessment & Plan (1) Hypertensive encephalopathy: (2) Hypertensive emergency: Patient is a 73-year-old male with history of hypertension, type 2 diabetes mellitus, obstructive sleep apnea, CHF, diastolic, atrial flutter, obesity, was brought to ER for confusion. Was found in the car confused with filth around him and brought to the hospital where he was oriented x 1. SBP in 240s on arrival, Blood sugar in 500s. Last PCP appt feb 2018 and has not taken any meds since than. Hypertensive urgency/emergency, Hypertensive encephalopathy: -[facility] with [facility]th around him in the car. SBP in 240s on arrival to ED. Hx of HTN, but Not been on any medications since February 2018 -IV NTG drip started in ICU--> Now off it since yesterday night -Started on Lopressor 50 mg BID, Hydralazine 25 mg TID, lasix 40 mg daily -Monitor -slowly bring down the blood pressure Work-up creatinine1.56, EKG-incomplete right bundle branch block, [id number], EchocardiogramEF 55 to 60%, mild to moderate AR mild aortic stenosis, grade 1 diastolic dysfunction., creatininenormal Diabetes Mellitus - II, uncontrolled secondary to noncompliance Uncontrolled, was in 500s on admission. He was on oral antidiabetic medications which she has not been taking since February 2018. Unsure about the names of the medications -[id number] received IV regular insulin 5 units in ED. Received IV insulin drip while in ICU -Now on Lantus 20 units BID started while in ICU, insulin sliding scale Depending on blood sugar levels will need to plan discharge medicationsoral versus insulin -Pharmacy consult for glycemia control -Monitor Diastolic congestive heart failure, -Has lower extremity edema, but chest x-ray okay, BNP 1999 -No overt signs of CHF exacerbation -Echograde 1 diastolic dysfunction, EF 55 to 60% Started on Lasix 40 mg daily Mild elevation of troponin, mostly secondary to elevated blood pressure, - demand ischemia. -Trend troponin- 0.062---> 0.121 -Echocardiogram-no new wall motion abnormality History of obstructive sleep apnea, -on CPAP at bedtime. History of atrial flutter, -not on Coumadin because of bleeding. Started on Lopressor 50 mg twice daily History of hyperlipidemia : -Not on medication. -Started on lipitor 40 mg q HS -Lipid panel - LDL 259, Cholesterol 350 We will need repeat lipid panel in 3 months Rash. -Erythematous rash on left ankle medial aspect, does not look like cellulitis Deep vein thrombosis prophylaxis, -SCDS Noncompliance Patient has not seen his PCP since February 2018. He was on diabetes, hypertensive medications and not taking it since then. Counseling done about importance of follow-up visits, compliance with medications, lifestyle modifications. Understands and agreeable. Full code Disposition: Transferred out of ICU to [facility] telemetry floor today. Expected discharge home once stable Needs to reestablish care with PCP as has not seen him since February 2018 Subjective Patient is feeling better. Denies any headache, blurry vision. No chest pain, shortness of breath, fever, chills. Does have chronic lower extremity edema Not on oxygen at this point Physical Exam Physical Exam: GENERAL- AAOX3, No acute distress, Obese LUNGS- Air entry bilaterally equal. No rales, rhonchi, crackles, wheezes heard. HEART- Regular rate and rhythm. No murmurs ABDOMEN- Soft, non tender, non distended, Bowel sounds heard. EXTREMITIES-bilateral lower extremity edema NEUROMUSCULAR- AAOX3, Grossly no focal deficits SKIN-erythematous rash in left ankle medial GUFoley's catheter in place Results & Data Vital Signs (Past 12 Hours) Vital Signs Temp Pulse Pulse Resp BP BP Pulse Ox 01/15/19 06:15 36.8 C 75 15 159/111 H 96 01/15/19 06:00 74 14 184/91 H 96 01/15/19 05:45 76 15 154/79 H 95 01/15/19 05:30 77 17 160/80 H 95 01/15/19 05:15 78 14 133/83 96 01/15/19 05:00 80 17 134/82 93 01/15/19 04:45 79 18 135/78 96 01/15/19 04:30 80 16 130/72 97 01/15/19 04:15 81 16 148/71 H 96 01/15/19 04:00 36.8 C 81 16 135/75 96 01/15/19 03:45 84 16 119/69 97 01/15/19 03:30 88 13 117/80 94 01/15/19 03:15 87 14 114/69 94 01/15/19 03:00 86 102/57 L 93 01/15/19 02:12 36.8 C 91 H 17 161/90 H 94 01/15/19 01:59 36.8 C 89 18 161/90 H 95 01/15/19 01:15 92 H 16 143/86 H 92 01/15/19 01:00 92 H 16 224/113 H 93 01/15/19 00:45 90 17 213/103 H 93 01/15/19 00:37 88 21 215/107 H 94 01/15/19 00:30 90 18 94 01/15/19 00:15 91 H 16 94 01/15/19 00:00 90 17 239/120 H 97 01/14/19 23:57 89 L 01/14/19 23:45 88 16 97 01/14/19 23:43 89 18 219/107 H 97 01/14/19 23:30 91 H 17 215/116 H 97 01/14/19 23:18 92 H 17 226/113 H 96 01/14/19 22:55 93 H 17 216/119 H 95 01/14/19 22:10 37.3 C 93 H 24 248/131 H 91
[2019-01-15] MEDS ORDERED: GLIMEPIRIDE 2 MG TAB PO SCH (09:00)
[2019-01-15] MEDS: ATORVASTATIN 40 MG TAB PO SCH (09:01)
[2019-01-15] MEDS: FUROSEMIDE 40 MG TAB PO SCH (09:11)
[2019-01-15] MEDS: METOPROLOL TARTRATE 50 MG TAB PO SCH ×2 (09:11→21:08)
--- NOTE | 2019-01-15 10:39 | Pharmacy Report ---
Glycemic Control Consultation - Date of Service January 15, 2019 - Scope Scope: Glycemic Pharmacist consulted by Dr Jeffery on 01/15 for glycemic control and to write orders per [facility] inpatient glycemic control protocol - Objective Weight: 107.3 kg Accuchecks BSG (last 24hrs): 01/14/19 01/14/19 01/15/19 22:28 22:37 01:16 Glucose 589 H* POC Glucose 507 H* POC Glucose (other) 617 H* 01/15/19 01/15/19 01/15/19 02:53 04:01 05:04 Glucose POC Glucose 539 H* 481 H* 464 H* POC Glucose (other) 01/15/19 01/15/19 01/15/19 05:06 06:06 07:09 Glucose 490 H* POC Glucose 444 H* 428 H* POC Glucose (other) 01/15/19 01/15/19 01/15/19 08:15 09:07 10:13 Glucose POC Glucose 352 H* 305 H* 350 H* POC Glucose (other) Laboratory Data (last 24hrs): 01/14/19 01/14/19 01/14/19 22:28 22:34 22:55 Potassium 4.5 Carbon Dioxide 27 Anion Gap 10.0 Creatinine 1.56 H Est Cr Clr Drug Dosing 50.4 Osmolality 321 H Beta-Hydroxybutyric Acd 5.18 H 01/15/19 05:06 Potassium 3.9 Carbon Dioxide 29 Anion Gap 7.0 Creatinine 1.54 H Est Cr Clr Drug Dosing 50.5 Osmolality Beta-Hydroxybutyric Acd 1.68 HbA1c: Hemoglobin A1c 11.9 % (4.5-5.6) H 01/15/19 05:06 - Recent Pertinent Medications Outpatient Anti-diabetic Regimen: * Not been taking meds for 3-4 months, reportedly had taken metformin, glimeperide * A1c = 11.9 % 01/15/19 The patient is currently receiving: * Insulin Infusion Risk Factors for Insulin Resistance: * Steroids: * Infection: * Pressors: * IVF: * Recent Surgery * Diet: NPO * Mechanical Ventilation: - Assessment & Plan Assessment & Plan: ASSESSMENT: * 73 year old male presenting to ED with hypertensive emergency, hyperglycemia * Patient reports he has not taken any medications for the past 3 to 4 months, BSGs in the 600s on admission and A1c 11.9% * Started on insulin infusion was up to 10.2 units/hr- per nurse reports the infusion may not have been infusing properly as dye would not go through line and would not flush, BSGs had been trending down- did have hold of infusion and BSG went from 305-350, restarted the infusion at 8.5 units/hr * Metformin/glimeperide added to profile at starting doses but on hold for now * Lantus 20 units given this AM, will likely need additional lantus to transition off of drip as drip running at high rates, will give additional dose later today. * May be reasonable to slowly improve BSGs,with a looser goal to start as patient has been hyperglycemic for quite some time. * Will likely start novolog at weight based stress of 2 dosing when transitioned PLAN FOR INPATIENT GLYCEMIC CONTROL: * Starting IV insulin infusion per severe stress protocol * Goal Range 110-180 mg/dl * In the critical care setting, continuous IV insulin infusion has been shown to be the best method for achieving glycemic targets. * Holding outpatient oral diabetes medications * Basal insulin * Lantus 20 units this morning, evening dose to be decided * Bolus insulin- to start when transitioned off of drip * NovoLog per scale ACHS or Q6hrs while NPO * Goal Range: Low 140 mg/dL - High 180 mg/dL * Correction Factor: 20 mg/dL/unit * Nutritional / Prandial insulin per carb ratio of 1 unit per 7 grams CHO consumed * Please note that the plan above was derived based on current level of insulin resistance and hospital stress. These recommendations are appropriate for inpatient admission only. Plan of care upon discharge will need to be reassessed to avoid potential outpatient hypo/hyperglycemia. Thank you.
[2019-01-15] MEDS ORDERED: POTASSIUM CHLORIDE 10 MEQ TABCR PO STA (13:15)
[2019-01-15] MEDS: HEPARIN SOD 5,000 UNIT/0.5 ML VIAL SQ SCH ×2 (14:57→21:08)
[2019-01-15] MEDS ORDERED: GLUCAGON FOR INJ 1 MG VIAL IM PRN (15:00)
[2019-01-15] MEDS ORDERED: GLUCOSE 40% GEL 15 GM TUBE PO PRN (15:00)
[2019-01-15] MEDS ORDERED: CARBOHYDRATES FOR HYPOGLYCEMIA PO PRN (15:00)
[2019-01-15] MEDS ORDERED: GLUCOSE 10 TABS/TUBE PO PRN (15:00)
[2019-01-15] MEDS ORDERED: DEXTROSE 50% 50 ML SYRINGE IV PRN (15:00)
[2019-01-15 15:38] LABS: BUN Creatinine Ratio 17.4 (10-20); Creatinine Clr Calc Pharmacy 51.5 ml/min; Est GFR (African American) 53.1; Est GFR (Non-African American) 45.8
[2019-01-15] MEDS ORDERED: METFORMIN HCL 500 MG TAB PO SCH (17:00)
[2019-01-15] MEDS ORDERED: INSULIN GLARGINE SOLOSTAR 100 UNITS/ML 3 ML PEN SC ONE (21:00)
[2019-01-16] MEDS: HEPARIN SOD 5,000 UNIT/0.5 ML VIAL SQ SCH ×3 (06:02→21:10)
[2019-01-16 07:07] LABS: Basophils # (auto) 0.03 K/uL (0-0.2); Basophils % (auto) 0.4 %; Eosinophils # (auto) 0.26 K/uL (0-0.5); Eosinophils % (auto) 3.5 %; Hematocrit (blood only) 42.5 % (42-52); Hemoglobin 14.5 g/dL (14.0-18.0); Immature Granulocytes # (auto) 0.02 K/uL (0.00-0.02); Immature Granulocytes % (auto) 0.3 %; Lymphocytes # (auto) 2.47 K/uL (1.2-3.4); Lymphocytes % (auto) 33.5 %; Mean Corpuscular Hemoglobin 28.2 pg (25-34); Mean Corpuscular Hgb Conc 34.1 g/dL (32-36); Mean Corpuscular Volume 82.5 fL (80-100); Mean Platelet Volume 9.9 fL (7.4-10.4); Monocytes # (auto) 0.47 K/uL (0.11-0.59); Monocytes % (auto) 6.4 %; Neutrophils # (auto) 4.12 K/uL (1.4-6.5); Neutrophils % (auto) 55.9 %; Platelet Count 217 K/uL (130-400); RDW Standard Deviation 42.2 fL (36.4-46.3); Red Blood Count 5.15 M/uL (4.7-6.1); White Blood Count 7.37 K/uL (4.8-10.8)
[2019-01-16 07:31] LABS: Calcium 8.6 mg/dl (8.5-10.1); Creatinine Clr Calc Pharmacy 49.5 ml/min; Est GFR (African American) 50.3; Est GFR (Non-African American) 43.4; Magnesium 2.1 mg/dl (1.8-2.4); Potassium 3.4 mmol/L (3.5-5.1)
[2019-01-16] MEDS: METOPROLOL TARTRATE 50 MG TAB PO SCH ×2 (07:43→21:10)
[2019-01-16] MEDS: ASPIRIN 81 MG ECTAB PO SCH (07:43)
[2019-01-16] MEDS: FUROSEMIDE 40 MG TAB PO SCH (07:43)
[2019-01-16] MEDS: ATORVASTATIN 40 MG TAB PO SCH (07:43)
[2019-01-16] MEDS: INSULIN GLARGINE SOLOSTAR 100 UNITS/ML 3 ML PEN SC SCH ×2 (07:45→21:11)
[2019-01-16] MEDS: INSULIN ASPART 100 UNITS/ML 3 ML PEN SC SCH ×4 (07:47→21:11)
--- NOTE | 2019-01-16 11:55 | Pharmacy Report ---
Pharmacy Glycemic Short Note 2 - Date of Service January 16, 2019 - Glycemic Short BSG Results (Last 24 hours): 01/15/19 01/15/19 01/15/19 12:39 13:01 14:46 Glucose 116 H POC Glucose 142 H 131 H 01/15/19 01/15/19 01/15/19 14:55 16:05 20:12 Glucose POC Glucose 132 H 155 H 174 H 01/16/19 01/16/19 06:44 07:20 Glucose 167 H POC Glucose 192 H ASSESSMENT: 01/16 * Patient transitioned off insulin drip yesterday, received total of 40 units of basal insulin yesterday in addition to drip running part of day * Fasting BSG at 167 mg/dL - will give Lantus 20 units this AM and continue with scale for this evening * Lunch BSG trending up now as patient eating more now as well, will tighten CF/CR * Will add scale for Lantus tonight based upon BSG 01/15 * 73 year old male presenting to ED with hypertensive emergency, hyperglycemia * Patient reports he has not taken any medications for the past 3 to 4 months, BSGs in the 600s on admission and A1c 11.9% * Started on insulin infusion was up to 10.2 units/hr- per nurse reports the infusion may not have been infusing properly as dye would not go through line and would not flush, BSGs had been trending down- did have hold of infusion and BSG went from 305-350, restarted the infusion at 8.5 units/hr * Metformin/glimeperide added to profile at starting doses but on hold for now * Lantus 20 units given this AM, will likely need additional lantus to transition off of drip as drip running at high rates, will give additional dose later today. * May be reasonable to slowly improve BSGs,with a looser goal to start as patient has been hyperglycemic for quite some time. * Will likely start novolog at weight based stress of 2 dosing when transitioned PLAN FOR INPATIENT GLYCEMIC CONTROL: * Basal insulin * Lantus 20 units this morning, then HS per scale * 15 for <120, 20 for 120-180, or 25 for >180 * Bolus insulin - tighten * NovoLog per scale ACHS or Q6hrs while NPO * Goal Range: Low 120 mg/dL - High 160 mg/dL * Correction Factor: 15 mg/dL/unit * Nutritional / Prandial insulin per carb ratio of 1 unit per 5 grams CHO consumed
[2019-01-16] MEDS ORDERED: POTASSIUM CHLORIDE 20 MEQ TABCR PO STA (11:57)
[2019-01-16] MEDS: AMLODIPINE BESYLATE 5 MG TAB PO SCH (12:06)
[2019-01-16] MEDS ORDERED: INSULIN ASPART 100 UNITS/ML 3 ML PEN SC ONE (12:45)
--- NOTE | 2019-01-16 15:10 | Hospitalist Progress Note ---
Date of Service January 16, 2019 Assessment & Plan (1) Hypertensive encephalopathy: (2) Hypertensive emergency: Present on admission with confusion with elevated SBP in 240 has been seen seing PCP since 02/21 and has not been taken any medication CT head showed no acute intracranial finding Was starting on nitro drip in the ICU Then transition to oral Lopressor 50 mg BID, Hydralazine 25 mg TID, lasix 40 mg daily BP improves Will add amlodipine 5 mg daily Continue monitor BP Will arrange follow up with PCP Diabetes Mellitus - II, Hba1c 11.9, uncontrolled diabetes has not been taking any med Received IV Insulin drip in the ICU Not sure if patient will be compliant with insulin and accucheck BS has been elevated Pharmacy on board for glycemic management has been on Lantus and insulin sliding scale Will discuss with pharmacy about the best option for him on discharge btw insulin and oral agents due to noncompliant and pt is homeless Insulin will be the prefer option due to his HbA1c, but not sure if pt will be compliant with insulin Diastolic congestive heart failure, Has lower extremity edema, but chest x-ray okay, BNP 2000 No overt signs of CHF exacerbation Echo showed no wall motion abnormality with grade 1 diastolic dysfunction, EF 55 to 60% Was starting on Lasix 40 mg daily, will titrate to 20mg on discharge Monitor BMP Mild elevation of troponin, Mostly demand ischemia due to hypertensive emergency EKG showed no ischemic changes Trend troponin- 0.062---> 0.121--->0.09 Echocardiogram showed no new wall motion abnormality History of obstructive sleep apnea on CPAP at bedtime. History of atrial flutter Not on Coumadin because of bleeding. Continue Lopressor 50 mg twice daily History of hyperlipidemia : Not on medication. LDL 259 and chol 350 Continue on lipitor 40 mg q HS Will check Lipid profile in 3 to 6 months Rash. Erythematous rash on left ankle medial aspect, does not look like cellulitis Improves Deep vein thrombosis prophylaxis, SCDS Full code Disposition Will discharge home tomorrow Subjective Pt was seen and examined Lying in bed with no distress Pt refused assistance in coordinating a custodial residence for him and/or connect him with housing transitions. He said that he has been staying in the motel and that his cheaper Denies any chest pain, palpitation, dizziness and SOB Physical Exam Physical Exam: General- No acute distress Head- atraumatic Eyes- PERRL, EOMI, ENT- oropharynx clear Neck- supple, no JVD Lungs- clear to auscultation Heart- regular rhythm; no murmur Abdomen- normal bowel sounds, soft, nontender Extremities- no calf tenderness Neuro- alert, oriented x 3; PERRL, EOMI; no facial palsy; no dysarthria Skin- warm & dry Results & Data Vital Signs (Past 12 Hours) Vital Signs Temp Pulse Pulse Resp BP Pulse Ox 01/16/19 11:46 36.5 C 58 L 16 130/76 91 01/16/19 07:16 36.5 C 59 L 18 146/84 H 94 01/16/19 07:07 61
[2019-01-17] MEDS: INSULIN ASPART 100 UNITS/ML 3 ML PEN SC SCH ×4 (00:42→12:03)
[2019-01-17] MEDS: HEPARIN SOD 5,000 UNIT/0.5 ML VIAL SQ SCH ×2 (06:42→13:53)
[2019-01-17 07:17] LABS: Basophils # (auto) 0.01 K/uL (0-0.2); Basophils % (auto) 0.1 %; Eosinophils # (auto) 0.21 K/uL (0-0.5); Eosinophils % (auto) 2.9 %; Hemoglobin 14.5 g/dL (14.0-18.0); Immature Granulocytes # (auto) 0.02 K/uL (0.00-0.02); Immature Granulocytes % (auto) 0.3 %; Lymphocytes # (auto) 1.45 K/uL (1.2-3.4); Lymphocytes % (auto) 20.2 %; Mean Corpuscular Hemoglobin 28.5 pg (25-34); Mean Corpuscular Hgb Conc 34.5 g/dL (32-36); Mean Corpuscular Volume 82.5 fL (80-100); Mean Platelet Volume 9.8 fL (7.4-10.4); Monocytes # (auto) 0.49 K/uL (0.11-0.59); Monocytes % (auto) 6.8 %; Neutrophils # (auto) 5.01 K/uL (1.4-6.5); Neutrophils % (auto) 69.7 %; Platelet Count 222 K/uL (130-400); RDW Coefficient of Variation 13.9 % (11.5-14.5); RDW Standard Deviation 41.9 fL (36.4-46.3); Red Blood Count 5.09 M/uL (4.7-6.1); White Blood Count 7.19 K/uL (4.8-10.8)
[2019-01-17 07:43] LABS: BUN Creatinine Ratio 20.8 (10-20); Calcium 8.4 mg/dl (8.5-10.1); Creatinine Clr Calc Pharmacy 56.7 ml/min; Est GFR (African American) 59.2; Est GFR (Non-African American) 51.1; Magnesium 2.2 mg/dl (1.8-2.4); Potassium 3.3 mmol/L (3.5-5.1)
[2019-01-17] MEDS: ATORVASTATIN 40 MG TAB PO SCH (08:14)
[2019-01-17] MEDS: METOPROLOL TARTRATE 50 MG TAB PO SCH (08:14)
[2019-01-17] MEDS: ASPIRIN 81 MG ECTAB PO SCH (08:14)
[2019-01-17] MEDS: FUROSEMIDE 40 MG TAB PO SCH (08:14)
[2019-01-17] MEDS: AMLODIPINE BESYLATE 5 MG TAB PO SCH (08:14)
[2019-01-17] MEDS ORDERED: POTASSIUM CHLORIDE 20 MEQ TABCR PO STA ×2 (08:35→15:43)
[2019-01-17] MEDS ORDERED: INSULIN GLARGINE SOLOSTAR 100 UNITS/ML 3 ML PEN SC SCH (09:00)
--- NOTE | 2019-01-17 10:11 | Pharmacy Report ---
Pharmacy Glycemic Short Note 2 - Date of Service January 17, 2019 - Glycemic Short BSG Results (Last 24 hours): 01/16/19 01/16/19 01/16/19 11:44 16:39 21:07 Glucose POC Glucose 250 H 109 H 189 H 01/17/19 01/17/19 01/17/19 00:12 04:12 06:35 Glucose 140 H POC Glucose 113 H 100 H 01/17/19 07:45 Glucose POC Glucose 140 H ASSESSMENT: 01/17 * Mr. Ramirez rec'd 83 units of insulin yesterday (45 of this being basal) * Fasting 140 mg/dL - will adjust basal to equal total basal of 44 units * Postprandial BSGs much improved and at/below goal - no change needed * With regards to discharge plans, I have provided some options below based upon patient's plan for discharge. Patient needs insulin on discharge with the A1c of 11.9%; however, unsure if patient will take it and issues with storage since patient lives out of his car/in motels. Also, not sure what patient will be able to afford. 01/16 * Patient transitioned off insulin drip yesterday, received total of 40 units of basal insulin yesterday in addition to drip running part of day * Fasting BSG at 167 mg/dL - will give Lantus 20 units this AM and continue with scale for this evening * Lunch BSG trending up now as patient eating more now as well, will tighten CF/CR * Will add scale for Lantus tonight based upon BSG 01/15 * 73 year old male presenting to ED with hypertensive emergency, hyperglycemia * Patient reports he has not taken any medications for the past 3 to 4 months, BSGs in the 600s on admission and A1c 11.9% * Started on insulin infusion was up to 10.2 units/hr- per nurse reports the infusion may not have been infusing properly as dye would not go through line and would not flush, BSGs had been trending down- did have hold of infusion and BSG went from 305-350, restarted the infusion at 8.5 units/hr * Metformin/glimeperide added to profile at starting doses but on hold for now * Lantus 20 units given this AM, will likely need additional lantus to transition off of drip as drip running at high rates, will give additional dose later today. * May be reasonable to slowly improve BSGs,with a looser goal to start as patient has been hyperglycemic for quite some time. * Will likely start novolog at weight based stress of 2 dosing when transitioned PLAN FOR INPATIENT GLYCEMIC CONTROL: * Basal insulin * Adjust to split dose of Lantus 22 units BID * Bolus insulin - tighten goal range * NovoLog per scale ACHS or Q6hrs while NPO * Goal Range: Low 110 mg/dL - High 150 mg/dL * Correction Factor: 15 mg/dL/unit * Nutritional / Prandial insulin per carb ratio of 1 unit per 5 grams CHO consumed Recommendations for discharge: * Option 1: Inexpensive, vial/syringe only * Relion 70/30 40 units with breakfast, 20 units with dinner (once opened, good for 28 days out of the refrigerator) * Metformin 500 mg BID * Option 2: Higher cost, available in pen * Insulin glargine (Lantus or Basaglar) 45 units qHS (once opened, good for 28 days out of the refrigerator) * Metformin 500 mg BID * Option 3: Lowest cost, no insulin, least preferred * Metformin 500 mg BID * Glipizide 2.5 mg daily
--- NOTE | 2019-01-17 14:37 | Hospitalist Progress Note ---
Date of Service January 17, 2019 Assessment & Plan (1) Hypertensive encephalopathy: (2) Hypertensive emergency: Present on admission with confusion with elevated SBP in 240 has been seen seing PCP since 02/21 and has not been taken any medication CT head showed no acute intracranial finding Was starting on nitro drip in the ICU Then transition to oral Lopressor 50 mg BID, Hydralazine 25 mg TID, lasix 40 mg daily Continue amlodipine 5 mg daily Will arrange follow up with PCP to mange BP BP improves Diabetes Mellitus - II, Hba1c 11.9, uncontrolled diabetes has not been taking any med Received IV Insulin drip in the ICU Not sure if patient will be compliant with insulin and accucheck BS has been elevated Pharmacy on board for glycemic management has been on Lantus and insulin sliding scale Cased discussed with pharmacy about the best option for him on discharge btw insulin and oral agents due to noncompliant and pt is homeless Pt said that he would prefer to take the table for now He said that he wanted to wait to start the insulin after finding a place to live. I explained to him that Insulin will be the prefer option due to his HbA1c We will discharge him with the lantus flexpen to take with him Pharmacist provided with recommendations for discharge: Option 1: Inexpensive, vial/syringe only Relion 70/30 40 units with breakfast, 20 units with dinner (once opened, good for 28 days out of the refrigerator) Metformin 500 mg BID Option 2: Higher cost, available in pen Insulin glargine (Lantus or Basaglar) 45 units qHS (once opened, good for 28 days out of the refrigerator) Metformin 500 mg BID Option 3: Lowest cost, no insulin, least preferred Metformin 500 mg BID Glipizide 2.5 mg daily Diastolic congestive heart failure, Has lower extremity edema, but chest x-ray okay, BNP 1999 No overt signs of CHF exacerbation Echo showed no wall motion abnormality with grade 1 diastolic dysfunction, EF 55 to 60% Was starting on Lasix 40 mg daily, will titrate to 20mg on discharge Monitor BMP Mild elevation of troponin, Mostly demand ischemia due to hypertensive emergency EKG showed no ischemic changes Trend troponin- 0.062---> 0.121--->0.09 Echocardiogram showed no new wall motion abnormality History of obstructive sleep apnea on CPAP at bedtime. History of atrial flutter Not on Coumadin because of bleeding. Continue Lopressor 50 mg twice daily History of hyperlipidemia : Not on medication. LDL 259 and chol 350 Continue on lipitor 40 mg q HS Will check Lipid profile in 3 to 6 months Rash. Erythematous rash on left ankle medial aspect, does not look like cellulitis Improves Deep vein thrombosis prophylaxis, SCDS Full code Disposition Will discharge home today Follow up with PCP Subjective Pt was seen and examined Sitting in chair with no distress Pt said that he feels ok He said that he has to get his car at [facility] on discharge He said that he would rather wait until he find a place to stay before starting on the insulin He has been leaving in his care He said that he would be more comfortable with the tablets I explained to him that the tablet alone, will not be able to control his BS Denies any chest pain, palpitation, dizziness and SOB Physical Exam Physical Exam: General- No acute distress Head- atraumatic Eyes- PERRL, EOMI, ENT- oropharynx clear Neck- supple, no JVD Lungs- clear to auscultation Heart- regular rhythm; no murmur Abdomen- normal bowel sounds, soft, nontender Extremities- no calf tenderness Neuro- alert, oriented x 3; PERRL, EOMI; no facial palsy; no dysarthria Skin- warm & dry Results & Data Vital Signs (Past 12 Hours) Vital Signs Temp Pulse Pulse Resp BP Pulse Ox 01/17/19 11:49 36.6 C 64 20 158/83 H 01/17/19 07:24 36.4 C L 64 18 124/77 93 01/17/19 07:16 77 01/17/19 03:04 35.9 C L 64 20 144/89 H 93
[2019-01-17 16:03] VITALS: BP 134/74; TEMP 98.1; O2SAT 91
[2019-01-17 16:09] VITALS: PULSE 70
--- NOTE | 2019-01-18 09:13 | Discharge Summary ---
Date of Service January 18, 2019 Admission HPI Per Admitting Provider CHIEF COMPLAINT: Confusion. HISTORY OF PRESENT ILLNESS: This is a 73-year-old male with past medical history significant for type 2 diabetes, hyperlipidemia, obstructive sleep apnea, diastolic CHF, hypertension, history of atrial flutter, GI bleed, ventral hernia, obesity, who presents with confusion. The patient says he went to visit his friend who was in the hospital in [place] [facility] and coming back he was confused. He was found in the car at [facility] with filth all around him and brought into the hospital and he was oriented only x1. Systolic blood pressure was running in 240s, sugars were running high in the 600s, but he was not in DKA. He was saturating 89% on room air and he has lower extremity edema. Chest x-ray is okay. Electrolytes were okay, labs were okay. Currently, the patient is alert and awake and oriented x3, but slow to answer. He is saying he also has some issues with memory. As per EPIC last PCP visit was in February 2018 . The patient says since last 3-4 months he is not taking any of his medications, because he ran out of the medication and he called them, but he was not given any medications. As per the PCP notes, since his mother is taken out to the senior living, he is mostly homeless living with a friend, but when asked today, the patient states he is living alone. Patient says he has some headache. Denies any blurred visions. He also complains of sore throat. Denies any chest pain. No shortness of breath, no cough, no fever, no chills, no nausea, no abdominal pain. He says his bowels are moving okay and his bladder is functioning okay. Admission Exam Per Admitting Provider GENERAL: The patient is alert and awake and oriented x3, was somewhat slow to answer. VITAL SIGNS: Temperature 37.3, pulse 88, respiratory rate 21, blood pressure 240/131, oxygen 94% on 2 liters. HEENT: No pallor, no icterus. Pupils equal and reactive to light. NECK: No JVD, no neck masses, no carotid bruits. CARDIOVASCULAR: S1, S2 heard, regular rate and rhythm, no murmur, no gallop. RESPIRATORY SYSTEM: Normal AP diameter. No accessory muscle use. No wheezing, no crackles. ABDOMEN: Soft, bowel sounds present, nontender. No distention. CENTRAL NERVOUS SYSTEM: Alert and oriented x3 but slow to answer. Obeys simple commands. Moves extremities. EXTREMITIES: Lower extremity gross edema present and some small rash seen in the left ankle medial aspect. Principal Diagnosis Hypertensive encephalopathy: Hypertensive emergency: Diastolic congestive heart failure, Diabetes type 2 History of atrial flutter History of hyperlipidemia Discharge Exam General- No acute distress Head- atraumatic Eyes- PERRL, EOMI, ENT- oropharynx clear Neck- supple, no JVD Lungs- clear to auscultation Heart- regular rhythm; no murmur Abdomen- normal bowel sounds, soft, nontender Extremities- no calf tenderness Neuro- alert, oriented x 3; PERRL, EOMI; no facial palsy; no dysarthria Skin- warm & dry Discharge Data Allergies Allergy/AdvReac Type Severity Reaction Status Date / Time No Known Allergies Allergy Unverified 01/15/19 00:41 Consultations 01/15/19 00:04 ED Decision to Admit Stat 01/15/19 02:11 Consult Case Management - Discharge Planning Routine Consult Quenching Machine Operator Routine Ordered Studies 01/14/19 22:12 CT head/brain wo con Urgent CT SCAN OF THE BRAIN WITHOUT IV CONTRAST CLINICAL HISTORY: Change in mental status. COMPARISON STUDY: No priors. TECHNIQUE: Unenhanced axial CT scan of the brain is performed from the vertex to the skull base. A dose lowering technique was utilized adhering to the principles of ALARA. CT DOSE: 537.48 mGy.cm FINDINGS: Brain parenchyma: There are age-related involutional changes noting mild subcortical and periventricular microangiopathic change. There is no hemorrhage, mass effect, or evidence of acute territorial ischemia by CT criteria. Luna- white matter differentiation is preserved. No extra-axial fluid collection is seen. Ventricles, sulci, cisterns: Prominent secondary to involutional change. Intracranial vasculature: There is mild atherosclerotic calcification of the cavernous carotid arteries. Calvarium: Unremarkable. Sinuses and mastoids: There is minimal mucosal thickening within the right ethmoid sinuses. The remaining visualized paranasal sinuses are clear. The mastoid air cells are well pneumatized. Orbits: The bony orbits are grossly intact. IMPRESSION: There is no hemorrhage, mass effect, or evidence of acute territorial ischemia by CT criteria. Electronically signed by: Bharat Koo M.D. 01/15/2019 7:03 AM Dictated: 01/15/19623 Transcribed: 01/15/19623 XR chest 1V portable CLINICAL HISTORY: 73 years-old Male presenting with ams. TECHNIQUE: Portable upright AP view of the chest was obtained. COMPARISON: None. FINDINGS: Atherosclerosis of the aortic arch. Cardiac silhouette enlarged. No focal opacity. No large effusion or pneumothorax. Degenerative changes of the thoracic spine. Upper abdomen normal. IMPRESSION: 1. Cardiomegaly. No other convincing evidence of acute cardiopulmonary disease. Electronically signed by: Jabier Ricketts M.D. 01/14/2019 10:23 PM Dictated: 01/14/192221 Transcribed: 01/14/192221 Hospital Course (1) Hypertensive encephalopathy: (2) Hypertensive emergency: Present on admission with confusion with elevated SBP in 240 has been seen seing PCP since 02/21 and has not been taken any medication CT head showed no acute intracranial finding Was starting on nitro drip in the ICU Then transition to oral Lopressor 50 mg BID, Hydralazine 25 mg TID, lasix 40 mg daily Continue amlodipine 5 mg daily Will arrange follow up with PCP to mange BP BP improves Diabetes Mellitus - II, Hba1c 11.9, uncontrolled diabetes has not been taking any med Received IV Insulin drip in the ICU Not sure if patient will be compliant with insulin and accucheck BS has been elevated Pharmacy on board for glycemic management has been on Lantus and insulin sliding scale Cased discussed with pharmacy about the best option for him on discharge btw insulin and oral agents due to noncompliant and pt is homeless Pt said that he would prefer to take the table for now He said that he wanted to wait to start the insulin after finding a place to live. I explained to him that Insulin will be the prefer option due to his HbA1c We will discharge him with the lantus flexpen to take with him Pharmacist provided with recommendations for discharge: Option 1: Inexpensive, vial/syringe only Relion 70/30 40 units with breakfast, 20 units with dinner (once opened, good for 28 days out of the refrigerator) Metformin 500 mg BID Option 2: Higher cost, available in pen Insulin glargine (Lantus or Basaglar) 45 units qHS (once opened, good for 28 days out of the refrigerator) Metformin 500 mg BID Option 3: Lowest cost, no insulin, least preferred Metformin 500 mg BID Glipizide 2.5 mg daily Diastolic congestive heart failure, Has lower extremity edema, but chest x-ray okay, BNP 1999 No overt signs of CHF exacerbation Echo showed no wall motion abnormality with grade 1 diastolic dysfunction, EF 55 to 60% Was starting on Lasix 40 mg daily, will titrate to 20mg on discharge Monitor BMP Mild elevation of troponin, Mostly demand ischemia due to hypertensive emergency EKG showed no ischemic changes Trend troponin- 0.062---> 0.121--->0.09 Echocardiogram showed no new wall motion abnormality History of obstructive sleep apnea on CPAP at bedtime. History of atrial flutter Not on Coumadin because of bleeding. Continue Lopressor 50 mg twice daily History of hyperlipidemia : Not on medication. LDL 259 and chol 350 Continue on lipitor 40 mg q HS Will check Lipid profile in 3 to 6 months Rash. Erythematous rash on left ankle medial aspect, does not look like cellulitis Improves Deep vein thrombosis prophylaxis, SCDS Full code Disposition Will discharge home today Follow up with PCP Total Time Total Time Spent Total Time Spent (In Minutes): 35 minutes Total Time Includes: Examination of the Patient, Discharge Planning, Medication Reconciliation, Communication With Other Providers and Other Discharge Plan Discharge Items Patient Disposition: Home - Self-Care Reason For Visit: CONFUSION Discharge Diagnosis: Hypertensive encephalopathy: Hypertensive emergency: Diastolic congestive heart failure, Diabetes type 2 History of atrial flutter History of hyperlipidemia Discharge Goals: Decrease discomfort, Improve disease control, Improve function and Increase independence Activity: Resume your previous activity Activity Comment: As tolerated Non-emergency contact: Primary Care Provider Call non-emergency contact if: you have any medication questions Follow-up/Referrals: PCP,NO [Primary Care Provider] - Diet: Carb Consistent or DM2 Addtl Provider Instructions: Follow up with your primary care provider Dr. Burnette on 01/22 @ 8:40 AM in [place] Monitor your blood sugar and bring your BS log to your next appointment with your physician Check BMP in 1 week to monitor electrolytes and kidney function since starting on Lasix Check Liver enzymes in 1 week since starting on statin for your cholesterol Continue monitor your blood pressure (your physician will adjust your medication) Follow a low salt and low carb diet. Limited concentrated sweet intake Check Lipid panel in 3 to 6 months to monitor your cholesterol Prescriptions: New atorvastatin 40 mg Tablet 40 mg PO QAM 30 Days Qty: 30 RF: 0 hydralazine 25 mg Tablet 25 mg PO TID 30 Days Qty: 90 RF: 0 amlodipine [Norvasc] 5 mg Tablet 5 mg PO QAM 30 Days Qty: 30 RF: 0 aspirin [Ecotrin Low Strength] 81 mg Tablet,Delayed Release (Dr/Ec) 81 mg PO QAM 30 Days Qty: 30 RF: 0 metoprolol tartrate 50 mg Tablet 50 mg PO BID 30 Days Qty: 60 RF: 0 glipizide 5 mg tablet 5 mg PO BID Qty: 30 RF: 0 metformin 500 mg tablet 500 mg PO BID Qty: 30 RF: 0 Lantus Solostar U-100 Insulin 100 unit/mL (3 mL) insulin pen 20 units SQ DAILY 30 Days Qty: 6 RF: 0 furosemide [Lasix] 20 mg tablet 20 mg PO DAILY Qty: 30 RF: 0 potassium chloride 10 mEq tablet extended release 10 meq PO DAILY Qty: 30 RF: 0 No Action No Known Home Medications RF: 0 Stand-Alone Forms: [facility] [employer] [facility]/Other Patient Handouts: Hypertension Control, Diabetes Custodial Complications, Hypertension Dc, Injection Pens Dc Discharge Orders: Discharge Order (Routine); Ordered 01/17/19 Ordered By: Jairon Beach Admission Data Admit Date/Time: 01/15/19 00:55 Attending Provider: Jairon Beach Admit Provider: Zuhair Jeffery Primary Care Provider: PCP,NO Other Providers: Zuhair Jeffery ; Lewis Lord ; Mattie Gunter Service: Telemetry Other Interventions: Discharge Summary Assessment (RN) Last Done: 01/17/19 16:06 DC Date/Time DO NOT enter until pt leaves facility: 01/17/19 17:53
== END 2019-01-17 17:53 | disposition home or self-care (01) | DRG 78 ==
LOC: ED 21:59 → SUATTDRO 01-15 00:55 → 1E 01-15 00:55 → 2S 01-15 13:04